=== PATIENT | male | born 1995 | race Caucasian/White ===

== ENCOUNTER 2017-12-12 23:40 | Emergency (ER) | payer BC ==
[2017-12-12] MEDS ORDERED: 0.9 % SODIUM CHLORIDE 1000ML 1,000 ML IV SCH (23:45)
--- NOTE | 2017-12-12 23:53 | Emergency Department Record ---
History of Present Illness - General Chief complaint: Vomiting Stated complaint: VOMITING/HEAT EXHAUSTION Time Seen by Provider: 12/12/17 23:48 Source: Patient Mode of Arrival: Ambulatory Limitations: No limitations - History of Present Illness Initial comments: 22 yo male presents to ED for evaluation of fatigue, nausea, and vomiting after working outdoors for the majority of the day. Patient reports "I think I have heat exhaustion". Patient denies abdominal symptoms, fevers, chills, or recent illness. Patient denies health problems at his baseline other "stomach ulcers". MD complaint: Nausea, Vomiting Onset/Timin -: Days(s) Description of Vomiting: Watery Severity scale (1-10): 10 Quality: Aching Consistency: Constant Improves with: None Worsens with: None Associated Symptoms: Nausea/vomiting - Related Data Previous Rx's Medication Instructions Recorded Ondansetron [Zofran Odt] 4 mg PO Q6H PRN #20 tab.rapdis 12/13/17 Allergies Allergy/AdvReac Type Severity Reaction Status Date / Time No Known Drug Allergies Allergy Verified 12/12/17 23:43 Travel Screening - Travel/Exposure Within Last 30 Days Have you traveled within the last 30 days?: No Review of Systems Constitutional: Denies: Chills, Fever, Malaise, Night sweats Eyes: Denies: Eye discharge, Eye pain ENT: Denies: Congestion, Ear pain Respiratory: Denies: Cough, Dyspnea Cardiovascular: Denies: Chest pain, Dyspnea on exertion Endocrine: Reports: Fatigue. Denies: Heat or cold intolerance Gastrointestinal: Reports: Nausea, Vomiting. Denies: Abdominal pain Genitourinary: Denies: Incontinence, Retention Musculoskeletal: Denies: Arthralgia, Back pain Skin: Denies: Bruising, Change in color Neurological: Reports: Headache. Denies: Abnormal gait, Confusion, Seizure Psychiatric: Denies: Anxiety Hematological/Lymphatic: Denies: Anemia, Blood Clots Past Medical History - SOCIAL HISTORY Smoking Status: Never smoker Alcohol Use: None Drug Use: None - RESPIRATORY Hx Respiratory Disorders: No - CARDIOVASCULAR Hx Cardio Disorders: No - NEURO Hx Neuro Disorders: No - GI Hx GI Disorders: Yes Hx Ulcer: Yes (Gastric) - Hx Genitourinary Disorders: No - ENDOCRINE Hx Endocrine Disorders: No - MUSCULOSKELETAL Hx Musculoskeletal Disorders: No - PSYCH Hx Psych Problems: No Family Medical History Any Significant Family History?: No Physical Exam - General General Appearance: Alert, Oriented x3, Cooperative, Mild distress Limitations: No limitations - Head Head exam: Atraumatic, Normocephalic, Normal inspection Head exam detail: negative: Abrasion, Contusion, Pérez's sign, General tenderness, Hematoma, Laceration - Eye Eye exam: Normal appearance. negative: Conjunctival injection, Periorbital swelling, Periorbital tenderness, Scleral icterus - ENT Ear exam: negative: Auricular hematoma, Auricular trauma Nasal Exam: negative: Active bleeding, Discharge, Dried blood, Foreign body Mouth exam: negative: Drooling, Laceration, Muffled voice, Tongue elevation - Neck Neck exam: Normal inspection. negative: Meningismus, Tenderness - Respiratory Respiratory exam: Normal lung sounds bilaterally. negative: Rales, Respiratory distress, Rhonchi, Stridor - Cardiovascular Cardiovascular Exam: Regular rate, Normal rhythm, Normal heart sounds - GI/Abdominal GI/Abdominal exam: Soft, Tenderness (Mild, diffuse TTP on examination, no peritoneal signs or rebound on examination.). negative: Rebound, Rigid - Rectal Rectal exam: Deferred - exam: Deferred - Extremities Extremities exam: Normal inspection. negative: Pedal edema, Tenderness - Back Back exam: Denies: CVA tenderness (R), CVA tenderness (L) - Neurological Neurological exam: Alert, Normal gait, Oriented X3 - Psychiatric Psychiatric exam: Normal affect, Normal mood - Skin Skin exam: Normal color. negative: Abrasion Type of lesion: negative: abrasion Course Vital Signs 12/12/17 23:47 Temperature 98.5 F Pulse Rate [ 65 Pulse Ox Probe] Respiratory 18 Rate Blood Pressure 120/87 [Left Arm] Pulse Ox 99 - Reevaluation(s) Reevaluation #1: 12/13/17 00:54 Labs reviewed and are grossly unremarkable for an acute process. Reevaluation #2: 12/13/17 01:29 Patient reassessed, reports that he is feeling much improved, and appears stable for discharge at this time. Medical Decision Making - Lab Data Result diagrams: 12/12/17 23:52 12/12/17 23:52 Disposition Disposition: Discharge Clinical Impression: Heat exhaustion Qualifiers: Encounter type: initial encounter Qualified Code(s): T67.5XXA - Heat exhaustion , unspecified, initial encounter Disposition: Home, Self-Care Condition: (2) Stable Instructions: Heat Exhaustion (ED) Additional Instructions: Return to ED if your symptoms worsen or if you have any concerns. Zofran as directed. Follow-up with your family doctor in 3-5 days as directed. Prescriptions: Ondansetron [Zofran Odt] 4 mg PO Q6H PRN #20 tab.rapdis PRN Reason: Nausea/Vomiting Forms: Patient Portal Access Time of Disposition: 00:56 Quality - Quality Measures Quality Measures: N/A - Blood Pressure Screening Does Patient Have Any of the Following: No Blood Pressure Classification: Pre-Hypertensive BP Reading Systolic Measurement: 120 Diastolic Measurement: 87 Screening for High Blood Pressure: < Pre-Hypertensive BP, F/U Documented > [ [id number]] Pre-Hypertensive Follow-up Interventions: Referral to alternative/primary care provider.
[2017-12-12] MEDS ORDERED: KETOROLAC 30 MG/ML VIAL IVP ONE (23:55)
[2017-12-12] MEDS ORDERED: ONDANSETRON HCL IV 4 MG/2 ML VIAL IVP ONE (23:57)
[2017-12-13] MEDS ORDERED: 0.9 % SODIUM CHLORIDE 1000ML 1,000 ML IV SCH (00:30)
[2017-12-13 00:35] LABS: BASO % 0.5 % (0-6); EOS % 3.3 % (0-6); GRAN % 55.8 % (47-80); HEMATOCRIT 46.8 % (42.0-52.0); LYMPH % 25.9 % (16-45); MEAN CELL VOLUME 86.8 fl (81-97); MEAN CORPUSCULAR HEMOGLOBIN 29.7 pg (27-33); MEAN CORPUSCULAR HGB CONC 34.2 g/dl (32-36); MEAN PLATELET VOLUME 9.2 fl (7.4-10.4); MONO % 14.5 % (0-9); PLATELET COUNT 361 K/uL (130-400); RED BLOOD COUNT 5.39 M/uL (4.40-5.70); RED CELL DISTRIBUTION WIDTH 12.6 % (11.5-14.5); WHITE BLOOD COUNT W/O DIFF 8.2 K/uL (4.2-12.2)
[2017-12-13 00:43] LABS: BLOOD UREA NITROGEN 13 mg/dL (6-20); EST GLOMERULAR FILTRATION RATE > 60 mL/min
[2017-12-13 00:44] LABS: TOTAL PROTEIN 7.4 g/dL (6.6-8.7)
[2017-12-13 00:46] LABS: GLUCOSE,RANDOM 85 mg/dL (74-109)
[2017-12-13 00:49] LABS: ALB/GLOB RATIO 1.6 (1.1-1.8); ALBUMIN 4.5 g/dL (4.0-5.0); ALKALINE PHOSPHATASE 81 U/L (40-129); ALT/SGPT 9 U/L (<41); AST/SGOT 16 U/L (10.0-50.0); CREATINE PHOSPHOKINASE 149 U/L (39-308)
[2017-12-13] MEDS ORDERED: DIPHENHYDRAMINE HCL 50 MG/ML VIAL IVP ONE (00:49)
[2017-12-13] MEDS ORDERED: PROMETHAZINE HCL 25 MG in 0.9 % SODIUM CHLORIDE 100ML 100 ML IVPB ONE (00:49)
== END 2017-12-13 01:36 | disposition home or self-care (01) ==
LOC: ER 23:40
DX: T67.5XXA Heat exhaustion, unspecified, initial encounter (principal); R11.2 Nausea with vomiting, unspecified; X30.XXXA Exposure to excessive natural heat, initial encounter
CPT/HCPCS: 80053; 82550; 85025; 96361; 96365; 96375; 99284; J1200; J1885; J2405; J2550; J7030